=== PATIENT | female | born 1995 | race Native Hawaiian/Other Pacific Islander ===

== ENCOUNTER 2022-11-20 15:30 | Emergency (ER) | payer OTHER ==
[~2022-11-20] VITALS: Ht 165.1 cm; Wt 90.7 kg
[2022-11-20 15:37] VITALS: BP 156/97; TEMP 99.2
== END 2022-11-20 16:34 | disposition home or self-care (01) ==
LOC: ED 15:30
DX: R10.9 Unspecified abdominal pain (principal); Z71.1 Person with feared health complaint in whom no diagnosis is made
CPT/HCPCS: 81002; 81025; 84702; 99283

== ENCOUNTER 2023-01-04 11:53 | Emergency (ER) | payer OTHER ==
[~2023-01-04] VITALS: Ht 165.1 cm; Wt 99.8 kg
[2023-01-04 11:55] VITALS: BP 144/93; TEMP 98.9
== END 2023-01-04 12:20 | disposition home or self-care (01) ==
LOC: ED 11:53
DX: K04.7 Periapical abscess without sinus (principal); K02.9 Dental caries, unspecified
CPT/HCPCS: 99282